=== PATIENT | male | born 1980 | race Two or more races ===

== ENCOUNTER 2020-02-08 04:30 | Emergency (ER) | payer OTHER ==
[~2020-02-08] VITALS: Ht 177.8 cm; Wt 106.6 kg
[2020-02-08 04:38] VITALS: BP 155/99
== END 2020-02-08 07:32 | disposition left against medical advice (07) ==
LOC: ER 04:30
DX: R10.9 Unspecified abdominal pain (principal); Z53.21 Procedure and treatment not carried out due to patient leaving prior to being seen by health care provider